=== PATIENT | female | born 1985 | race Caucasian/White ===

== ENCOUNTER 2017-10-23 16:48 | Emergency (ER) | payer OTHER ==
--- NOTE | 2017-10-23 16:57 | PDOC ---
History of Present Illness - General Chief Complaint: Nausea/Vomiting Stated Complaint: 1 MONTH HISTORY OF ABDOMINAL PAIN Time Seen by Provider: 10/23/17 16:54 - History of Present Illness Initial Comments: 10/23/17 17:54 The patient is a 31 year old female with no significant PMH who presents for evaluation of lower abdominal cramping. The patient reports a 1 month history of intermittent lower abdominal cramping and bloating with associated diarrhea after eating. 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 She otherwise denies fevers, chills, SOB, chest pain, nausea, vomiting, or changes with urination. Past History - Past Medical History Allergies/Adverse Reactions: Allergies Allergy/AdvReac Type Severity Reaction Status Date / Time Penicillins Allergy Unknown Rash Verified 10/23/17 16:51 Home Medications: Ambulatory Orders NK [No Known Home Medication] 10/23/17 Asthma: Yes - Suicide/Smoking/Psychosocial Hx Smoking History: Never smoked Have you smoked in the past 12 months: No Hx Alcohol Use: Yes (SOCIAL) Drug/Substance Use Hx: No Substance Use Type: None Review of Systems - Review of Systems Comments:: 10/23/17 17:56 Constitutional: No fevers, chills, fatigue, malaise HEENT: No Rhinorrhea, nasal congestion, visual changes Cardiovascular: No chest pain, syncope, palpitations, lightheadedness Respiratory: No Cough, SOB, Hemoptysis, Gastrointestinal: Lower abdominal cramping, diarrhea. Bloating. No Nausea, Vomiting, Constipation, Melena Genitourinary: No Dysuria, Frequency, Urgency, Hesitancy, Hematuria, Flank pain Musculoskeletal: No Myalgia, arthralgia Skin: No rashes, itching, bruising, pallor Neurologic: No Headache, Dizziness, Numbness, Weakness, or Tingling Psychiatric: No Hallucinations. No SI or HI *Physical Exam - Physical Exam Comments: 10/23/17 18:01 General Appearance: Nourished. No Apparent Distress HEENT: No Pharyngeal Erythema, Tonsillar Exudate, Tonsillar Erythema Neck: No Cervical Lymphadenopathy Respiratory/Chest: Lungs Clear, Normal Breath Sounds. No Crackles, Rales, Rhonchi, Wheezing Cardiovascular: Regular Rhythm, Regular Rate. No Murmur, Gallops, Rubs Gastrointestinal/Abdominal: Normal Bowel Sounds, Soft. No Guarding, Rebound, Tenderness Musculoskeletal: No CVA Tenderness Extremity: Normal Capillary Refill Integumentary: Normal Color, Dry, Warm Neurologic: Fully Oriented, Alert, Normal Mood/Affect, Normal Response, Medical Decision Making - Medical Decision Making 10/23/17 18:02 The patient is a 31 year old female with no significant PMH who presents for evaluation of lower abdominal cramping. Given the patient's history and physical exam, we will obtain a ua, urine culture to evaluate further. The patient's constellation of symptoms appear to be consistent with an Irritable bowel syndrome or food intolerance. UA was unremarkable here. We are comfortable discharging the patient home with GI follow up. We discussed the results, plan, and return precautions with the patient who voiced understanding and is agreeable with the plan. *DC/Admit/Observation/Transfer Diagnosis at time of Disposition: Abdominal cramping - Discharge Dispostion Disposition: HOME Condition at time of disposition: Stable Decision to Admit order: No - Referrals Referrals: Rosalio Amador MD [Staff Physician] - - Patient Instructions Printed Discharge Instructions: How to Use an Elimination Diet Additional Instructions: Please return to the ER if you experience concerning or worsening symptoms including worsening pain, fevers, or vomiting. Your urine was normal here in the ER. Please call to schedule a follow up appointment with our GI specialist Dr. Amador within 2-3 days to discuss your ER visit and further management of your symptoms. - Post Discharge Activity
[2017-10-23 17:05] VITALS: BP 134/85; PULSE 82; TEMP 98.7; BMI 25.0
[2017-10-23 17:13] LABS: URINE APPEARANCE Clear; URINE BILIRUBIN Negative (NEGATIVE); URINE COLOR Yellow; URINE GLUCOSE (UA) Negative (NEGATIVE); URINE KETONE Negative (NEGATIVE); URINE NITRITE Negative (NEGATIVE); URINE PROTEIN Negative (NEGATIVE); URINE UROBILINOGEN 0.2 (0.2-1.0)
[2017-10-23 17:18] LABS: URINE LEUK ESTERASE TRACE (NEGATIVE)
--- NOTE | 2017-10-23 17:23 | PDOC ---
Attending Attestation - Resident Resident Name: Chucky Saenz - ED Attending Attestation I have performed the following: I have examined & evaluated the patient, The case was reviewed & discussed with the resident, I agree w/resident's findings & plan, Exceptions are as noted - HPI HPI: 31 yo F no significant PMH presents with lower abd cramping pain. She notes that she intermittently has constipation or diarrhea with meals, but is unsure if it is related to specific foods. She c/o bloating, feeling like she has PMS for the past month, however, symptoms are independent of her period. She states that she eats fast food a lot, unsure if any exposures. No N/V, no f/c. - Physicial Exam PE: GENERAL: Awake, alert, and fully oriented, in no acute distress HEAD: No signs of trauma EYES: PERRLA, EOMI, sclera anicteric, conjunctiva clear ENT: Auricles normal inspection, hearing grossly normal, nares patent, oropharynx clear without exudates. Moist mucosa NECK: Normal ROM, supple, no lymphadenopathy, JVD, or masses LUNGS: Breath sounds equal, clear to auscultation bilaterally. No wheezes, and no crackles HEART: Regular rate and rhythm, normal S1 and S2, no murmurs, rubs or gallops ABDOMEN: Soft, nontender, hyperactive bowel sounds. No guarding, no rebound. No masses EXTREMITIES: Normal range of motion, no edema. No clubbing or cyanosis. No cords, erythema, or tenderness NEUROLOGICAL: Cranial nerves II through XII grossly intact. Normal speech, normal gait SKIN: Warm, Dry, normal turgor, no rashes or lesions noted. - Medical Decision Making Pt is well-appearing. No signs of acute abdomen. Suspect this may be a food intolerance. Gave her information for elimination diet, recommended GI f/u.
[2017-10-23 17:37] LABS: EPI CELLS FEW /HPF; URINE RBC 0-2 /hpf (0-3)
[2017-10-23 17:38] LABS: AMORP URATES FEW /hpf (NONE SEEN); URINE BACTERIA FEW /hpf (NEGATIVE)
== END 2017-10-23 18:00 | disposition home or self-care (01) ==
LOC: FER 16:48
DX: R10.9 Unspecified abdominal pain (principal)
CPT/HCPCS: 81003; 81015; 84703; 87086; 99282-25